=== PATIENT | male | born 1945 | race Caucasian/White ===

== ENCOUNTER 2019-08-23 08:53 | Outpatient (CLI) | payer MEDICARE, OTHER ==
--- NOTE | 2019-08-23 11:47 | RAD ---
CHEST TWO VIEWS: HISTORY: Sarcoidosis. COMPARISON: No comparison chest films. There is a chest CT from 06/30/2017 which is reviewed. FINDINGS: The left CP angle is obscured and there is stranding in the left lung base. This has a similar appear ance to the prior exam and appears stable from the prior CT. The right lung is clear. Vascular markings are normal. Heart and mediastinum are unremarkable. There is no evidence of interstitial thickening in either lung field. IMPRESSION: Stranding and evidence of mild atelectasis in the left lung base obscuring the CP angle on the fronta l view. This appears stable from a prior chest CT. No evidence of acute process. POS: OFF
--- NOTE | 2019-08-24 10:36 | PFT ---
PATIENT HISTORY: HEIGHT: 72 IN WEIGHT: 200 SMOKER: NO HOW LON YRS PACKS PER DAY: 1/2 PRODUCTIVE COUGH: LUNG DISEASE: PHYSICIAN INTERPRETATION FINAL REPORT: Patient had good effort and good cooperation. PFT data: FVC 4.15 (90%), FEV1 2.81 (84%) RV 1.99 (115%), TLC 6.13 (83%) DIFFUSION 24.54 (82%) The FEV1 and FVC fall within the lower limits of normal. The ratio is slightly reduced, suggestive of minimal obstructive air flow limitation. There is no significant change following the administration of a bronchodilator. Residual Volume is minimally reduced. Total Lung Capacity falls with in the lower limits normal. Diffusion capacity is also within lower limits of normal. Compared to 2015, there has been a significant improvement in the FVC, no significant change to the FEV1, and no significant change to the diffusion capacity. 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 Tax Services Professional: MARLA Furnace Cleaner: MARLA CHENEY
== END 2019-08-23 08:54 | disposition home or self-care (01) ==
LOC: CP 08:53 → RAD 08:54
PROVIDERS: ATTEND Internal Medicine
DX: D86.9 Sarcoidosis, unspecified (principal); J98.11 Atelectasis
CPT/HCPCS: 71046; 94060; 94727; 94729

== ENCOUNTER 2020-09-12 07:57 | Outpatient (CLI) | payer MEDICARE, OTHER ==
--- NOTE | 2020-09-12 08:31 | RAD ---
EXAM: Chest PA and lateral: HISTORY: Dyspnea. COMPARISON: 08/23/2019 FINDINGS: Heart: Normal cardiac silhouette Aorta: Unremarkable Pulmonary vessels: Normal Costophrenic angles: Costophrenic angles are clear. Lungs: No consolidation or masses. Chronic lung parenchymal changes. Pneumothorax: No pneumothorax Osseous structures: No osseous abnormalities IMPRESSION: No acute cardiopulmonary process.
== END 2020-09-12 07:58 | disposition home or self-care (01) ==
LOC: BICRAD 07:57
PROVIDERS: ATTEND Internal Medicine Critical Care Medicine
DX: R06.00 Dyspnea, unspecified (principal)
CPT/HCPCS: 71046